=== PATIENT | male | born 1980 | race Caucasian/White ===

== ENCOUNTER 2017-10-25 13:49 | Emergency (ER) | payer OTHER ==
[2017-10-25 14:03] VITALS: BP 140/75; PULSE 75; TEMP 98.5; BMI 29.7
--- NOTE | 2017-10-25 14:49 | PDOC ---
History of Present Illness - General Chief Complaint: Injury Stated Complaint: FALL Time Seen by Provider: 10/25/17 14:30 History Source: Patient Exam Limitations: No Limitations - History of Present Illness Initial Comments: 10/25/17 14:47 Status post fall 2 days ago. was placing items in his Cho pocket and missed last 2 steps falling forward. Patient was unable to break his fall and landed on his face/nose. Sustained multiple abrasions, contusions and has continued swelling to his nose and left orbit. Patient denies LOC, did not have bleeding from his nose or ears, mental status is unchanged according to his . Took ibuprofen for pain relief. Tetanus is up-to-date 2 years ago. No other injuries, no other complaints. Occurred: reports: yesterday Severity: reports: moderate Pain Location: reports: face, head Method of Injury: Yes: fall Modifying Factors: improves with: cold therapy, pain medication Loss of Consciousness: no loss of consciousness Associated Symptoms (Fall): denies symptoms Past History - Travel Traveled outside of the country in the last 30 days: No Close contact w/someone who was outside of country & ill: No - Past Medical History Allergies/Adverse Reactions: Allergies Allergy/AdvReac Type Severity Reaction Status Date / Time No Known Allergies Allergy Verified 10/25/17 14:01 Home Medications: Ambulatory Orders No Home Medications 0 dose .ROUTE UTDICT 03/16/12 COPD: No - Suicide/Smoking/Psychosocial Hx Smoking Status: Yes Smoking History: Never smoked Number of Cigarettes Smoked Daily: 3 Information on smoking cessation initiated: No 'Breaking Loose' booklet given: 10/25/17 Hx Alcohol Use: No Drug/Substance Use Hx: No Substance Use Type: Alcohol Trauma Specific PMHX - Complaint Specific PMHX Back Injury: No Neck Injury: No Review of Systems - Review of Systems Able to Perform ROS?: Yes Is the patient limited Persian proficient: Yes Constitutional: Yes: Symptoms Reported, See HPI. No: Fever, Malaise HEENTM: Yes: Symptoms Reported, See HPI. No: Blurred Vision, Nose Congestion Respiratory: Yes: Symptoms reported, See HPI. No: Cough ABD/GI: No: Symptoms Reported Musculoskeletal: Yes: See HPI. No: Symptoms Reported, Back Pain, Neck Pain Integumentary: Yes: Symptoms Reported, See HPI, Erythema, Lesions Neurological: Yes: Symptoms reported, See HPI. No: Headache All Other Systems: Reviewed and Negative *Physical Exam - Vital Signs Last Vital Signs Temp Pulse Resp BP Pulse Ox 98.5 F 75 18 140/75 99 10/25/17 13:58 10/25/17 13:58 10/25/17 13:58 10/25/17 13:58 10/25/17 13:58 - Physical Exam General Appearance: Yes: Nourished, Appropriately Dressed, Apparent Distress, Mild Distress, Moderate Distress HEENT: positive: SIERRA, TMs Normal (no hemotympanum/ no drainageg ), Pharynx Normal, Other (superficial abrasions to face/holiness/ nose/ chin. Swel;ling to left orbit wiht no crepitus or stepoff, no eom or noted palsy. vision WNL ). negative: Nasal Congestion, Rhinorrhea (no drainage, no septal hematoma ), Sinus Tenderness Neck: positive: Supple. negative: Tender, Tender midline Respiratory/Chest: positive: Lungs Clear, Normal Breath Sounds Gastrointestinal/Abdominal: positive: Soft Musculoskeletal: positive: Normal Inspection. 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 We will treat with bacitracin ointment, and conservative measures as there are no fractures indicated and CAT scan to facial x-rays. Patient understands need for follow-up for worsening swelling, any visual changes, or any evidence of infection otherwise we'll rest and follow up with PMD as needed *DC/Admit/Observation/Transfer Diagnosis at time of Disposition: Head injury Qualifiers: Encounter type: initial encounter Qualified Code(s): S09.90XA - Unspecified injury of head, initial encounter Abrasion of face Qualifiers: Encounter type: initial encounter Qualified Code(s): S00.81XA - Abrasion of other part of head, initial encounter - Discharge Dispostion Disposition: HOME Condition at time of disposition: Stable Admit: No - Referrals - Patient Instructions Printed Discharge Instructions: DI for Closed Head Injury Additional Instructions: Rest, elevate area if possible Ice packs to swelling Lots of fluids to keep well hydrated Keep area clean and reapply antimicrobial/bacitracin cream lightly, as directed twice a day until wound healed May use aloe vera 100% jelly on wounds in between Ibuprofen for pain relief, anti-inflammatory effcts See private physician in one to 2 days for wound check as needed Return to emergency department for worsening swelling, pain, evidence of infection - Post Discharge Activity Forms/Work/School Notes: Back to Work
== END 2017-10-25 16:00 | disposition home or self-care (01) ==
LOC: JERFT 13:49
DX: S00.83XA Contusion of other part of head, initial encounter (principal); S00.81XA Abrasion of other part of head, initial encounter; W10.9XXA Fall (on) (from) unspecified stairs and steps, initial encounter; Z91.81 History of falling; Y93.89 Activity, other specified; Y92.038 Other place in apartment as the place of occurrence of the external cause; Y99.8 Other external cause status
CPT/HCPCS: 70150-TC-FY; 70450-TC; 99281-25